=== PATIENT | female | born 1985 | race Caucasian/White ===

== ENCOUNTER 2021-06-24 18:56 | Emergency (ER) | payer BC, SELFPAY ==
[2021-06-24 18:58] VITALS: BP 132/79; PULSE 94; RESP 18; TEMP 37.7; O2SAT 99; BMI 34.7
--- NOTE | 2021-06-24 19:43 | EX.ED.VIS.UR ---
HPI HPI - URI History of Present Illness Chief Complaint: Sore Throat Informant: patient Onset/Context/Timing Onset: Days Context: Gradual Onset Timing: Continuous Quality: Dull but sharp at times Location: Throat Worsened by: Swallowing Relieved by: - (Nothing) Associated Symptoms Associated Symptoms: Positive for Nasal Congestion and Nonproductive cough; Negative for Headache, Sinus Pressure, Myalgias, Nausea, Vomiting, Diarrhea, Shortness of Breath, Chest Pain, Hemoptysis and Productive Cough Narrative Narrative: Patient presents with a sore throat that has been getting worse over the past couple days. Patient states it is gradually getting worse. Patient admits to some postnasal drainage. Patient states her pain is dull but sharp at times. Patient states it is worse with swallowing. Patient admits to some nasal congestion but denies any rhinorrhea. Patient states she took Mucinex last evening which did not help with the drainage. Patient admits to a cough but denies any sputum production. Patient denies any chest pain or shortness of breath. Patient denies any nausea, vomiting, or diarrhea. ROS ROS ED Constitutional Constitutional ED: Denies chills or fever(s) Eyes Eyes: Denies blurry vision or change in vision ENT ENT ED: Reports sore throat; Denies rhinorrhea Cardiovascular Cardiovascular: Denies chest pain or palpitations Respiratory/Chest Respiratory/Chest: Reports cough; Denies dyspnea Gastrointestinal Gastrointestinal: Denies nausea or vomiting Genitourinary Genitourinary ED: Denies dysuria or hematuria Musculoskeletal Musculoskeletal: Denies back pain or neck pain Integumentary Denies abscess or rash Neurologic Neurologic: Denies headache(s) or weakness Allergic/Immunologic Allergic/Immunologic ED: Denies mouth swelling or urticaria PFSH PFSH Medical History no medical history no medical history Home Medications NK 06/24/21 [History Last Taken Unknown] Allergy/AdvReac Type Severity Reaction Status Date / Time No Known Allergies Allergy Verified 06/24/21 19:00 Surgical History no surgical history no surgical history Social History Smoking Status: Never smoker EXAM Physical Exam Const Vital Signs: 06/24/21 18:58 Temperature 100 F H Temperature Source Temporal Pulse Rate 94 Respiratory Rate 18 Blood Pressure 132/79 H Blood Pressure Mean 96 Pulse Ox 99 Oxygen Delivery Method Room Air Positive well nourished and well developed General Appearance ED: well developed and NAD HEENT Reports moist mucous membranes normocephalic and atraumatic Throat: posterior oropharynx abnormal Positive for cobblestoning Neck no lymphadenopathy, supple and no JVD Neuro oriented x3, CN's II-XII intact bilaterally and no sensory deficits noted Sensorium / Orientation: alert Motor Exam: strength 5/5 throughout Psych mental status grossly normal MDM MDM MDM Narrative Medical decision making narrative: Rapid strep was obtained and was negative. Patient was advised of her findings. Patient was advised that this is most likely a viral pharyngitis. Patient was instructed to drink plenty of fluids. Patient was instructed to take Zyrtec or Claritin as needed for any postnasal drainage. Patient was instructed to follow-up with her primary care physician in 3 to 5 days. Patient understood and was agreeable with the plan. All questions were answered. Discharge Plan Triage Chief Complaint: Sore Throat ED Provider: Chu Delong Dx/Rx/DC Orders Clinical Impression: Viral pharyngitis, Viral upper respiratory tract infection Instructions: ED Pharyngitis, Viral, ED URI, Viral, No Abx (Adult) Prescriptions: No Action NK RF: 0 Primary Care Provider: Care Physician,No Primary Referrals: Raymond Gutierres MD [STAFF PHYSICIAN] - 3-5 Days Care Physician,No Primary [Primary Care Provider] - Disposition Disposition: Home, Self Care
[2021-06-24 20:55] VITALS: BP 124/78; PULSE 66; RESP 16; TEMP 36.9; O2SAT 98
== END 2021-06-24 21:00 | disposition home or self-care (01) ==
PROVIDERS: Emergency Provider Emergency Medicine; Visit Provider Emergency Medicine
DX: J06.9 Acute upper respiratory infection, unspecified (principal); B97.89 Other viral agents as the cause of diseases classified elsewhere
CPT/HCPCS: 87880; 99283

== ENCOUNTER 2021-10-24 19:35 | Emergency (ER) | payer BC, SELFPAY ==
[2021-10-24 19:36] VITALS: BP 120/73; PULSE 84; RESP 18; TEMP 36.3; O2SAT 100; BMI 38.4
[2021-10-24 20:03] LABS: Mucous, Urine 0 SEEN /hpf (<or=2+); Squamous Epithelial Cells - UA 0 SEEN /hpf (5-10)
[2021-10-24 20:06] LABS: Color, Urine Brown (Yellow); Glucose, Dipstick Normal (Normal); Ketone-Dipstick 5 mg/dl (Negative); Leukocyte Esterase-Dipstick 500 /ul (Negative); Nitrite-Dipstick Positive (Negative); Occult Blood-Urine 250 /ul (Negative); Protein-Dipstick 100 mg/dl (Negative); Urine Bilirubin Dipstick Negative (Negative); Urine Clarity Turbid (Clear); Urine Urobilinogen 1 mg/dl (Normal)
[2021-10-24 20:20] LABS: Internal QC Validated? YES +Cl - CLEAR BKGD; Pregnancy, Urine Negative Negative
[2021-10-24 20:40] LABS: Red Blood Cells-Urine > 100 SEEN /hpf (0-5); White Blood Cells 50-100 SEEN /hpf (0-5)
--- NOTE | 2021-10-24 20:40 | ED.VIS.GI ---
HPI HPI - GI History of Present Illness Chief Complaint: Abd Pain Narrative Narrative: 36-year-old female presenting with suprapubic fullness. She describes it as cramping. She also noted she had dysuria about a week ago which resolved. Today she has some blood in her urine. She does not have dysuria but she does have urinary frequency today. No fevers or chills. Mild nausea without vomiting. She is able to eat and drink without difficulty. She is making normal stool. No vaginal complaints. No history of UTI. No history of kidney stones. PFSH PFSH Home Medications ondansetron 4 mg disintegrating tablet 4 mg PO Q8H PRN nausea and vomiting #10 tabs 10/24/21 [Rx Last Taken Unknown] sulfamethoxazole 800 mg-trimethoprim 160 mg tablet (Bactrim DS) 1 tab PO BID #20 tabs 10/24/21 [Rx Last Taken Unknown] Allergy/AdvReac Type Severity Reaction Status Date / Time No Known Allergies Allergy Verified 10/24/21 19:37 Social History Smoking Status: Never smoker ROS ROS ED Constitutional Constitutional ED: Denies chills or fever(s) ENT ENT ED: Denies rhinorrhea or sore throat Cardiovascular Cardiovascular: Denies chest pain or palpitations Respiratory/Chest Respiratory/Chest: Denies cough or dyspnea Gastrointestinal Gastrointestinal: Reports abdominal pain; Denies constipation Genitourinary Genitourinary ED: Reports hematuria and urinary frequency; Denies dysuria Musculoskeletal Musculoskeletal: Denies arthralgias or back pain Integumentary Denies abscess Neurologic Neurologic: Denies headache(s) Psychiatric Psychiatric: Denies anxiety or depression EXAM Physical Exam Const Vital Signs: 10/24/21 19:36 Temperature 97.3 F L Temperature Source Temporal Pulse Rate 84 Respiratory Rate 18 Blood Pressure 120/73 Blood Pressure Mean 88 Pulse Ox 100 Oxygen Delivery Method Room Air Positive well nourished General Appearance ED: NAD; Negative for pallor HEENT Reports moist mucous membranes normocephalic Eyes PERRL and EOMs intact bilaterally Resp normal respiratory effort and clear to auscultation bilaterally Auscultation: Negative for rales, rhonchi or wheezes Cardio regular rate and regular rhythm GI GI Narrative: Mild suprapubic tenderness. Back/Spine General Back: CVA tenderness right Neuro CN's II-XII intact bilaterally Sensorium / Orientation: alert Skin General Skin Exam: Negative for jaundice or pallor MDM MDM MDM Narrative Medical decision making narrative: Patient presenting with suprapubic fullness and history of dysuria which is resolved. She now has hematuria. She has no history of kidney stones. She states today she developed some suprapubic pressure is now rating around to the right flank. Was in acute onset right flank pain that radiates to the groin. No history of kidney stones. Urinalysis today is positive for UTI. She has positive nitrites and 500 leukocyte esterase. This will be sent for culture. 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 Given that she is not having any severe symptoms, fevers, chills I think this is okay. I will treat her with the first dose of antibiotics here. She states she does not anything for dysuria. She was given Zofran for nausea. Patient discharged home in stable condition. Impression: 1. Acute pyelonephritis 2. Hematuria 3. Nausea Lab Data Attestation: I reviewed the patient's lab results. Labs: Laboratory Results - last 24 hr 10/24/21 19:55 Urine Color Brown Urine Clarity Turbid Urine pH 5.0 Ur Specific [place] 1.020 Urine Protein 100 H Urine Glucose (UA) Normal Urine Ketones 5 H Urine Occult Blood 250 H Urine Nitrite Positive H Urine Bilirubin Negative Urine Urobilinogen 1 H Ur Leukocyte Esterase 500 H Urine Test Negative Discharge Plan Triage Chief Complaint: Abd Pain ED Provider: Alexandru Centeno Dx/Rx/DC Orders Instructions: ED Pyelonephritis, Female (Adult) Prescriptions: New sulfamethoxazole-trimethoprim [Bactrim DS] 800-160 mg tablet 1 tab PO BID Qty: 20 0RF ondansetron 4 mg tablet,disintegrating 4 mg PO Q8H PRN (Reason: nausea and vomiting) Qty: 10 0RF Primary Care Provider: Care Physician,No Primary Referrals: Adilene Serrano MD [Med Staff - Active Staff] - 3-5 Days Care Physician,No Primary [Primary Care Provider] - Disposition Disposition: Home, Self Care
[2021-10-24 20:41] LABS: Bacteria 1+ /hpf (None Seen)
[2021-10-24] MEDS: Smz/Tmp Ds Tablet 1 TABLET PO (20:42)
[2021-10-24] MEDS: Ondansetron ODT 4 MG Tablet PO (20:42)
[2021-10-24 21:03] VITALS: BP 120/68; PULSE 78; RESP 16; O2SAT 98
== END 2021-10-24 21:04 | disposition home or self-care (01) ==
PROVIDERS: Emergency Provider Student in an Organized Health Care Education/Training Program; Visit Provider Student in an Organized Health Care Education/Training Program
DX: N10 Acute pyelonephritis (principal); R11.0 Nausea; R31.9 Hematuria, unspecified
CPT/HCPCS: 81001; 81025; 87077; 87086; 87088; 87186; 99283; J7030

== ENCOUNTER 2023-05-04 02:24 | Emergency (ER) | payer OTHER, SELFPAY ==
[2023-05-04 02:25] VITALS: BP 122/78; PULSE 118; RESP 12; TEMP 36.8; O2SAT 99; BMI 32.5
--- NOTE | 2023-05-04 02:46 | EDS_ITS ---
HPI History of Present Illness Chief Complaint: Cold Sx Informant: patient Narrative Narrative: Patient presents with illness for 4 days. She states she started with sinus pressure but that is gone. She has had a sore throat. She has had bodyaches. She has had fever up to 101. No vomiting or diarrhea. A couple times she has had mild nausea but she is still eating. Her appetite is decreased though. She is coughing but not bringing up sputum. Not having chest pain. No hemoptysis. Her daughter had the same symptoms but seem to get better after 2 or 3 days and the patient is still feeling ill. She feels like she is not drinking as much fluids as she should even though she is not unable to do so. Although she has had mild nausea intermittently she does not have abdominal pain. No urinary or flank symptoms. 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 PFSH PFSH Home Medications levofloxacin 750 mg tablet 750 mg PO DAILY #5 tabs 05/04/23 [Rx Last Taken Unknown] ondansetron 4 mg disintegrating tablet 4 mg PO Q8H PRN PRN Nausea #10 tabs 05/04/23 [Rx Last Taken Unknown] Allergy/AdvReac Type Severity Reaction Status Date / Time No Known Allergies Allergy Verified 05/04/23 02:27 Surgical History History of mandibular surgery Social History Smoking Status: Never smoker ROS ROS ED ROS Narrative A complete review of systems was performed and is negative except as documented in the history of present illness. Some specific details below. Constitutional: Chills fever malaise and myalgias EYE: No discharge, visual complaints, or pain. ENT: Initially nasal congestion and sinus pressure but that is better. Mild sore throat. No earache. CV: No chest pain or palpitations. Respiratory: See history of present illness. GI: No abdominal pain. Mild nausea but no vomiting diarrhea. No blood in stool. : No frequency dysuria or hematuria. Musculoskeletal: No recent trauma. She does have myalgias. Skin: No rash. Nondiaphoretic. Neuro: No weakness or numbness. Endocrine: No polyuria or polydipsia. EXAM Physical Exam Narrative Exam Narrative: CONSTITUTIONAL: Patient is nontoxic in appearance. The patient looks comfortable. Work of breathing looks normal. HEENT: No notable trauma. Mucous membranes still moist. No sinus tenderness. No indication of pain with swallowing. I see no exudate. Voice is normal. Tympanic membranes are both clear. EYES: No conjunctival injection. No proptosis. No pallor NECK:No JVD. No stridor. CARDIOVASCULAR: Regular rate currently at about 100. Regular rhythm. No notable murmur. No JVD. RESPIRATORY: No respiratory distress. Breathing is unlabored. No wheezes. No rhonchi. No rales. No pain with a deep breath. No chest wall tenderness. When she takes a deep breath it does sometimes induce a cough. But there is no wheezing with it. GASTROINTESTINAL: Not distended. Bowel sounds are normal. No tenderness. No guarding. No rebound. GENITOURINARY: No tenderness over the bladder. No CVA tenderness. MUSCULOSKELETAL: Atraumatic. No peripheral edema. No cord. No tenderness. NEUROLOGICAL: Patient is alert and appropriate. No focal deficit noted. SKIN: No noted rashes. No diaphoresis. PSYCHIATRIC: Patient is calm. Mood is appropriate. Const Vital Signs: 05/04/23 02:25 05/04/23 02:27 Temperature 98.2 F Temperature Source Temporal Pulse Rate 118 H Respiratory Rate 12 Respiratory Effort Normal Respiratory Pattern Normal Blood Pressure 122/78 H Blood Pressure Mean 92 Pulse Ox 99 Oxygen Delivery Method Room Air MDM [facility] MDM Narrative Medical decision making narrative: Patient's influenza A is positive. My independent interpretation of her x-ray shows bilateral infiltrative process mostly perihilar. But this is concerning with her confluent influenza. Her lungs actually sound good. She is not wheezing and moving good air. She has excellent oxygenation. Displayed her symptoms and cough and malaise she is not actually short of breath. I do think this warrants antibiotics. Levaquin should have good coverage and absorption including post influenza pneumonia. We will ambulate her to make sure she is does not desaturate. I do not think blood work is going to alter her treatment process here. She is overall young, he althy, on no long-term medications and not short of breath with good oxygen levels. I think a trial of outpatient therapy is appropriate. Radiography Diagnostic Testing: Clinical Impression(s) from Imaging Studies Chest X-Ray 05/04/23 02:50 IMPRESSION: Bilateral pulmonary infiltrate Electronically Signed: Jasen Silva MD at 4:44 EST , Discharge Plan Triage Chief Complaint: Cold Sx ED Provider: Tj Pelayo Dx/Rx/DC Orders Clinical Impression: Influenza A, Pneumonia Instructions: ED Influenza (Adult), ED Pneumonia (Adult) Prescriptions: New levofloxacin 750 mg tablet 750 mg PO DAILY Qty: 5 0RF ondansetron [ondansetron] 4 mg tablet,disintegrating 4 mg PO Q8H PRN PRN (Reason: Nausea) Qty: 10 0RF Primary Care Provider: Care Physician,No Primary Referrals: Marleni Griffin MD [Med Staff - Active Staff] - 3-5 Days if not improving Care Physician,No Primary [Primary Care Provider] - Disposition Disposition: Home, Self Care
--- NOTE | 2023-05-04 02:50 | RAD_ITS ---
INDICATION: cough EXAMINATION/TECHNIQUE: X-RAY - XR Chest 2 Views COMPARISON: None. FINDINGS: LINES/DEVICES: None. LUNGS: Multiple airspace opacities bilateral mid to lower lungs. No sizable pleural effusion. No pneumothorax detected. MEDIASTINUM AND CARDIOVASCULAR STRUCTURES: Heart size within normal limits. Mediastinal contours unremarkable. BONES AND SOFT TISSUES: No acute findings. RAD/Chest PA and Lateral IMPRESSION: Bilateral pulmonary infiltrate Electronically Signed: Jasen Silva MD at 4:44 EST ,
--- OUTSIDE RECORDS SUMMARY | 2023-05-04 02:53 | XMS RPT_ITS | CCD ---
Author Name Unknown Address [facility] [place] [address] Organization [facility] Care Team Providers Care Block Breaker Operator Name Role Phone KATI ESCAMILLA Attending KATI Camejo Primary Care Unavailable KATI ESCAMILLA Admitting Unavailable Problems Problem Classification Problem Date Documented Da te Episodic/Chronic Unclassified (3 sources) Myalgia, unspecified site; Translations: [Myalgia, unspecified site] Onset: 02-28-2020 Results Test Name Value Interpretation Reference Range Facil ity Encounters Encounter Date Encounter Type Care Provider Facility Start: 02-28-2020 End: 02-28-2020 Patient encounter procedure KATI ESCAMILLA [facility] Payers Date Payer Category Payer Unknown [id number] Private Health Insurance [id number] Progress note 10-26-2020 Note Date & Type Note Facility 10-26-2020 Note HNO ID: [id number] Author: Mariusz Laurent II, OD Service: ? 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 Systane Complete through day and ophthalmic paul right eye qhs. Recheck as needed. Instruct patient to immediately report any change in condition outside of expected and discussed symptoms. I have confirmed and edited as necessary the relevant ophthalmic history, ROS, and the neuro exam findings as obtained by others. I have seen and examined Marissa Etienne. I have discussed the case and the management of this patient's care with the Resident/Fellow, if applicable. I also have reviewed and agree with the assessment and plan as stated above and agree with all of its relevant components. Mariusz Laurent II, OD [facility] Summary Purpose Family History No Family History Records FoundNo Family History Records FoundNo Family History Records Found Advance Directives No Advanced Directives Records FoundNo Advanced Directives Records FoundNo Advanced Directives Records Found Additional Source Comments INFORMATION SOURCE (unrecogn ized section and content) DATE CREATED AUTHOR AUTHOR'S ORGANIZ ATION 03/08/2020 [facility] DATE CREATED AUTHOR AUTHOR'S ORGANIZ ATION 10/27/2020 [facility] FOR RECORDS PERTAINING TO PATIENTS WHO ARE OR HAVE BEEN ENROLLED IN A CHEMICAL DEPENDENCY/SUBSTANCEABUSE PROGRAM, SOME INFORMATION MAY BE OMITTED. This clinical summary was aggregated from multiple sources. Caution should be exercised in using it in the provision of clinical care. This summary normalizes information from multiple sources, and as a consequence, information in this document may materially change the coding, format and clinical context of patient data. In addition, data may be omitted in some cases. CLINICAL DECISIONS SHOULD BE BASED ON THE PRIMARY CLINICAL RECORDS. [facility] provides no warranty or guarantee of the accuracy or completeness of information in this document.
[2023-05-04] MEDS: Acetaminophen 500 MG Tablet 1000 MG PO (03:39)
[2023-05-04 04:57] VITALS: O2SAT 96
[2023-05-04] MEDS: levoFLOXacin 750 MG Tablet PO (05:12)
[2023-05-04 05:13] VITALS: BP 105/65; PULSE 101; RESP 18; TEMP 36.8; O2SAT 98
== END 2023-05-04 05:17 | disposition home or self-care (01) ==
PROVIDERS: Emergency Provider Emergency Medicine; Visit Provider Emergency Medicine
DX: J10.00 Influenza due to other identified influenza virus with unspecified type of pneumonia (principal); J18.9 Pneumonia, unspecified organism
CPT/HCPCS: 71046; 87631; 99282